=== PATIENT | male | born 1935 | race Caucasian/White ===

== ENCOUNTER 2021-03-27 11:53 | Inpatient (IN) | payer OTHER ==
--- OUTSIDE RECORDS SUMMARY | 2021-03-27 11:57 | XMS REPORT | Continuity of Care Document ---
:1935 Author Organization [facility] Address [address] Nevarez [address] [place] [id number] Care Team Providers Name Role Phone Bharathi COBURN Attending Clinician Unavailable Payers Payer Name Policy Type Policy Number Effective Date Expiration Date S gianni MEDICARE PART A [id number] 2000 \T\ B 00:00:00 [employer] INDEMNITY [id number] [id number] 00:00:00 Problems This patient has no known problems. Allergies, Adverse Reactions, Alerts Allergy Allergy Status Severity Reaction(s) Onset Inactive Treating Comm ents Source Name Type Date Date Clinician NO KNOWN Drug Active [facility] ALLERGIE Class [facility] Medications This patient has no known medications. Procedures This patient has no known procedures. Encounters Start End Encounter Admission Attending Care Care Encounter Source Date/Time Date/Time Type Type Clinicians Facility Department ID 2020-04-20 2020-04-20 Outpatient Angelita COBURN [facility] [id number] Univers 10:30:00 10:30:00 DEJA [id number] [facility] 2020-04-20 2020-04-20 Outpatient Angelita COBURN [facility] [id number] Univers 10:30:00 10:30:00 DEJA [facility] 2020 2020 Outpatient Angelita COBURN [facility] [id number] Univers 10:30:00 10:30:00 DEJA [id number] [facility] 2020 2020 Outpatient Angelita COBURN [facility] [id number] Univers 10:30:00 10:30:00 DEJA [facility] Results This patient has no known results.
[2021-03-27] MEDS ORDERED: LEVALBUTEROL 1.25 MG/3 ML NEB ONE (12:15)
[2021-03-27 12:26] LABS: Absolute Lymphocytes (CBC) 1.7 K/uL (0.7-4.9); Hematocrit 44.7 % (39.6-49.0); Lymphocytes % 19.5 % (15.3-44.8); MPV 8.2 fL (7.6-11.3); RBC Red Blood Cell Count 4.79 M/uL (4.33-5.43)
[2021-03-27 12:33] LABS: Protime INR 1.13
[2021-03-27 12:46] LABS: Albumin 3.2 g/dL (3.4-5.0); Bilirubin Direct 0.1 mg/dL (0-0.2); Bilirubin Total 0.4 mg/dL (0.2-1.0); Magnesium 2.4 mg/dL (1.8-2.4); Potassium 4.3 mmol/L (3.5-5.1)
[2021-03-27 12:51] LABS: Troponin High Sensitivity 83.1 pg/mL (<58.9)
--- NOTE | 2021-03-27 12:59 | RAD REPORT ---
EXAM DESCRIPTION: RAD - Chest Single View - 03/27/2021 12:49 pm CLINICAL HISTORY: SOB COMPARISON: March 26 TECHNIQUE: AP portable chest image was obtained 03/27/2021 12:49 pm . FINDINGS: Lung volumes are low. Interstitial opacification remains. There is central vascular engorg ement and right greater than left pleural effusions. Lung parenchymal pattern is similar to compariso n. No pneumothorax. No acute bony abnormality seen. No acute aortic findings suspected. IMPRESSION: Pulmonary edema pattern with bilateral pleural effusions similar to prior day imaging.
[2021-03-27] MEDS ORDERED: FUROSEMIDE 20 MG/ 2ML VIAL ONE (13:37)
[2021-03-27] MEDS ORDERED: ASPIRIN 81 MG CHEWABLE TABLET ONE (13:37)
[2021-03-27 13:39] LABS: SARS-COV-2 RT PCR NEGATIVE (NEGATIVE)
--- NOTE | 2021-03-27 13:54 | ER ---
Nurse's Notes [facility] Name: Salomón Diane Age: 85 yrs Sex: Male : 1935 Arrival Date: 03/27/2021 Time: 11:58 Bed 19 Private MD: Diagnosis: Unspecified combined systolic (congestive) and diastolic (congestive) heart failure;Dyspnea Presentation: 03/27 12:02 Chief complaint: EMS states: "Pt has a history of CHF and has been getting short of jd3 breath over the past 3 days. we started a 20 G IV to the left AC and gave 40 mg of Lasix.". Coronavirus screen: At this time, the client does not indicate any symptoms associated with coronavirus-19. Ebola Screen: No symptoms or risks identified at this time. Initial Sepsis Screen: Does the patient meet any 2 criteria? No. Patient's initial sepsis screen is negative. Does the patient have a suspected source of infection? No. Patient's initial sepsis screen is negative. Risk Assessment: Do you want to hurt yourself or someone else? Patient reports no desire to harm self or others. Onset of symptoms was March 27, 2021. 12:02 Method Of Arrival: EMS: [facility] jd3 12:02 Acuity: VINOD 3 jd3 Historical: - Allergies: 12:05 No Known Allergies; jd3 - PMHx: 12:05 CHF; jd3 - Immunization history:: Adult Immunizations up to date, Client reports receiving the 2nd dose of the Covid vaccine. - Social history:: Smoking status: Patient denies any tobacco usage or history of. Screenin:08 Abuse screen: Denies threats or abuse. Nutritional screening: No deficits noted. jd3 Tuberculosis screening: No symptoms or risk factors identified. Fall Risk Ambulatory Aid- None/Bed Rest/Nurse Assist (0 pts). Gait- Normal/Bed Rest/Wheelchair (0 pts) Mental Status- Oriented to own ability (0 pts). Total Morfin Fall Scale indicates No Risk (0-24 pts). Assessment: 12:07 General: Appears uncomfortable, Behavior is calm, cooperative, appropriate for age. jd3 Pain: Complains of pain in back and chest Quality of pain is described as aching. Neuro: Level of Consciousness is awake, alert, obeys commands, Oriented to person, place, time, situation. Cardiovascular: Capillary refill < 3 seconds Patient's skin is warm and dry. Rhythm is sinus tachycardia. Respiratory: Reports shortness of breath at rest Airway is patent Respiratory effort is even, unlabored, Respiratory pattern is regular, symmetrical, Denies cough. GI: No signs and/or symptoms were reported involving the gastrointestinal system. : No signs and/or symptoms were reported regarding the genitourinary system. EENT: No signs and/or symptoms were reported regarding the EENT system. Derm: No signs and/or symptoms reported regarding the dermatologic system. Musculoskeletal: Circulation, motion, and sensation intact. Range of motion: intact in all extremities. 13:46 Reassessment: Patient appears in no apparent distress at this time. No changes from jd3 previously documented assessment. Patient and/or family updated on plan of care and expected duration. Pain level reassessed. Patient is alert, oriented x 3, equal unlabored respirations, skin warm/dry/pink. 14:37 Reassessment: Patient appears in no apparent distress at this time. No changes from jd3 previously documented assessment. Patient and/or family updated on plan of care and expected duration. Pain level reassessed. Patient is alert, oriented x 3, equal unlabored respirations, skin warm/dry/pink. Vital Signs: 12:05 BP 137 / 91; Pulse 106; Resp 18 S; Temp 98.4(O); Pulse Ox 97% on R/A; Weight 94.35 kg jd3 (R); Height 5 ft. 9 in. (175.26 cm) (R); Pain 10/10; 13:47 Pulse 110; Resp 20 S; Pulse Ox 96% on R/A; jd3 14:37 BP 102 / 70; Pulse 94; Resp 22 S; Pulse Ox 97% on R/A; jd3 12:05 Body Mass Index 30.72 (94.35 kg, 175.26 cm) jd3 ED Course: 11:58 Patient arrived in ED. iw 12:02 Lobo Hatfield, PUSHPA is Primary Nurse. jd3 12:04 Triage completed. jd3 12:05 Brian Diaz PA is PHCP. cp 12:05 Tio Ocampo MD is Attending Physician. cp 12:06 Arm band placed on. jd3 12:08 Patient has correct armband on for positive identification. Bed in low position. Call jd3 light in reach. Side rails up X 1. Adult w/ patient. threat monitoring analyst on. Pulse ox on. NIBP on. 12:29 Maintain EMS IV. Dressing intact. Good blood return noted. Site clean \\T\\ dry. Gauge \\T\\ bobbi 3 site: 20 G left AC. 12:49 XRAY Chest (1 view) In Process Unspecified. EDMS 13:52 Verónica Medley MD is Hospitalizing Provider. cp 14:12 US Extremity Venous W Compression Pieter In Process Unspecified. EDMS 14:38 Diet: Patient given a heart healthy meal tray. [facility] 15:00 No provider procedures requiring assistance completed. Patient admitted, IV remains in jd3 place. Administered Medications: 12:15 Drug: Xopenex (levalbuterol) (3) 1.25 mg Route: Inhalation; jd3 13:42 Drug: Lasix (furosemide) 20 mg Route: IVP; Site: left antecubital; jd3 14:40 Follow up: Response: No adverse reaction jd3 13:42 Drug: Aspirin Chewable Tablet 324 mg Route: PO; jd3 14:40 Follow up: Response: No adverse reaction jd3 Outcome: 13:53 Decision to Hospitalize by Provider. cp 15:00 Admitted to Med/surg accompanied by tech, via wheelchair, room 225, with chart, Report jd3 called to 2 nd floor nurse 15:00 Condition: stable 15:00 Instructed on the need for admit, Demonstrated understanding of instructions. 15:08 Patient left the ED. jd3 Signatures: Dispatcher [employer] Anali Hudson RN RN Brian Bo PA PA cp Martinez, Maria [facility] Lobo Hatfield RN RN jd3 Corrections: (The following items were deleted from the chart) 13:43 13:42 Lasix (furosemide) 20 mg IVP in right antecubital jd3 jd3
--- NOTE | 2021-03-27 13:54 | EDPHYS ---
Physician Documentation [facility] Name: Salomón Diane Age: 85 yrs Sex: Male : 1935 Arrival Date: 03/27/2021 Time: 11:58 Bed 19 Private MD: ED Physician Tio Ocampo HPI: 03/27 12:20 This 85 yrs old Male presents to ER via EMS with complaints of Shortness of Breath. cp 12:20 The patient has shortness of breath at rest. cp 12:20 Onset: The symptoms/episode began/occurred 3 day(s) ago. cp 12:20 Duration: The symptoms are continuous, and are steadily getting worse. cp 12:20 Associated signs and symptoms: Pertinent negatives: chest pain, diaphoresis, fever, cp vomiting. Historical: - Allergies: 12:05 No Known Allergies; jd3 - PMHx: 12:05 CHF; jd3 - Immunization history:: Adult Immunizations up to date, Client reports receiving the 2nd dose of the Covid vaccine. - Social history:: Smoking status: Patient denies any tobacco usage or history of. ROS: 12:25 Constitutional: Negative for body aches, chills, fever, poor PO intake. cp 12:25 Eyes: Negative for injury, pain, redness, and discharge. cp 12:25 Cardiovascular: Positive for edema, orthopnea, Negative for chest pain, palpitations. cp 12:25 Respiratory: Positive for shortness of breath, at rest. Negative for cough. cp 12:25 Abdomen/GI: Negative for abdominal pain, nausea, vomiting, and diarrhea. 12:25 Neuro: Negative for altered mental status, dizziness, headache, loss of consciousness, syncope, weakness. 12:25 All other systems are negative. Exam: 12:30 Constitutional: The patient appears in no acute distress, alert, awake, cp non-diaphoretic, non-toxic, well developed, well nourished, obese. 12:30 Head/Face: Normocephalic, atraumatic. cp 12:30 Eyes: Periorbital structures: appear normal, Conjunctiva: normal, no exudate, no injection, Sclera: no appreciated abnormality, Lids and lashes: appear normal, bilaterally. 12:30 ENT: External ear(s): are unremarkable, Nose: is normal, Mouth: Lips: moist, Oral mucosa: moist, Posterior pharynx: Airway: no evidence of obstruction, patent. 12:30 Chest/axilla: Inspection: normal, Palpation: is normal, no crepitus, no tenderness. 12:30 Cardiovascular: Rate: tachycardic, Rhythm: regular, Edema: ankle edema, that is moderate, JVD: is not appreciated. 12:30 Respiratory: the patient does not display signs of respiratory distress, Respirations: shallow respirations, that is mild, Breath sounds: decreased breath sounds, that are mild, throughout, stridor, is not appreciated. 12:30 Abdomen/GI: Inspection: obese Palpation: abdomen is soft and non-tender, in all quadrants. 12:30 Back: pain, is absent, ROM is normal. 12:30 Neuro: Orientation: to person, place \\T\\ time. Mentation: is normal, Motor: moves all fours, strength is normal, Sensation: is normal. 12:35 ECG was reviewed by the Attending Physician. Vital Signs: 12:05 BP 137 / 91; Pulse 106; Resp 18 S; Temp 98.4(O); Pulse Ox 97% on R/A; Weight 94.35 kg jd3 (R); Height 5 ft. 9 in. (175.26 cm) (R); Pain 10/10; 13:47 Pulse 110; Resp 20 S; Pulse Ox 96% on R/A; jd3 14:37 BP 102 / 70; Pulse 94; Resp 22 S; Pulse Ox 97% on R/A; jd3 12:05 Body Mass Index 30.72 (94.35 kg, 175.26 cm) jd3 MDM: 12:11 Patient medically screened. 13:50 Data reviewed: vital signs, nurses notes, lab test result(s), EKG, radiologic studies, cp plain films. 13:50 Test interpretation: by ED physician or midlevel provider: ECG, plain radiologic cp studies. 03/27 12:11 Order name: Basic Metabolic Panel; Complete Time: 13:07 03/27 13:08 Interpretation: Normal except: GLUC 123; BUN 21; CRE 1.58; GFR 42. cp 03/27 12:11 Order name: CBC with Diff; Complete Time: 13:07 03/27 12:11 Order name: LFT's; Complete Time: 13: 03/27 12:11 Order name: Magnesium; Complete Time: 13:07 cp 03/27 12:11 Order name: NT PRO-BNP; Complete Time: 13:07 cp 03/27 13:08 Interpretation: Abnormal: NT PRO-BNP 4289. cp 03/27 12:11 Order name: PT-INR; Complete Time: 13:07 cp 03/27 12:11 Order name: Troponin HS; Complete Time: 13:07 cp 03/27 13:08 Interpretation: Abnormal: Troponin HS 83.10. cp 03/27 12:33 Order name: COVID-19/FLU A+B (Document "Date of Onset" if Symptomatic) jd3 03/27 14:16 Order name: CBC with Automated Diff [facility] 03/27 14:16 Order name: CBC with Automated Diff [facility] 03/27 14:16 Order name: Comprehensive Metabolic Panel [facility] 03/27 14:16 Order name: Comprehensive Metabolic Panel [facility] 03/27 14:16 Order name: Magnesium [facility] 03/27 14:16 Order name: Magnesium [facility] 03/27 12:11 Order name: XRAY Chest (1 view); Complete Time: 13:07 03/27 12:11 Order name: EKG; Complete Time: 12:12 cp 03/27 12:11 Order name: Cardiac monitoring; Complete Time: 12:11 cp 03/27 12:11 Order name: EKG - Nurse/Tech; Complete Time: 12:28 03/27 13:22 Order name: US Extremity Venous W Compression Pieter 03/27 14:16 Order name: CONS Physician Consult [facility] 03/27 14:16 Order name: Heart Healthy [facility] 03/27 14:16 Order name: Echo with Doppler [facility] 03/27 14:16 Order name: Echo with Doppler [facility] 03/27 14:16 Order name: NT PRO-BNP [facility] 03/27 14:16 Order name: NT PRO-BNP [facility] 03/27 14:16 Order name: Phosphorus [facility] 03/27 14:16 Order name: Phosphorus [facility] 03/27 12:11 Order name: IV Saline Lock; Complete Time: 12:28 cp 03/27 12:11 Order name: Labs collected and sent; Complete Time: 12:28 03/27 12:11 Order name: O2 Per Protocol; Complete Time: 12:11 cp 03/27 12:11 Order name: O2 Sat Monitoring; Complete Time: 12:11 cp EC:35 Rate is 91 beats/min. Rhythm is regular. MI interval is prolonged at 222 msec. QRS cp interval is prolonged at 106 msec. QT interval is normal. T waves are Inverted in lead aVL. Interpreted by me. Reviewed by me. Administered Medications: 12:15 Drug: Xopenex (levalbuterol) (3) 1.25 mg Route: Inhalation; jd3 13:42 Drug: Lasix (furosemide) 20 mg Route: IVP; Site: left antecubital; jd3 14:40 Follow up: Response: No adverse reaction jd3 13:42 Drug: Aspirin Chewable Tablet 324 mg Route: PO; jd3 14:40 Follow up: Response: No adverse reaction jd3 Disposition: 03/28 04:38 Co-signature as Attending Physician, Tio Ocampo MD I agree with the assessment and sp3 plan of care. Disposition Summary: 03/27/21 13:53 Hospitalization Ordered Hospitalization Status: Inpatient Admission cp Provider: Verónica Medley [facility] cp Condition: Stable cp Problem: new cp Symptoms: have improved cp Bed/Room Type: Standard cp Room Assignment: 225(03/27/21 14:20) bd Diagnosis - Unspecified combined systolic (congestive) and diastolic (congestive) heart failure cp - Dyspnea cp Forms: - Medication Reconciliation Form cp - SBAR form cp Signatures: Dispatcher [employer] EDHeydi Berrios Corey, PA PA cp Lobo Hatfield RN RN jd3 Patel, Setul, MD MD sp3 Corrections: (The following items were deleted from the chart) 03/27 14:20 13:53 cp bd
[2021-03-27] MEDS ORDERED: ONDANSETRON 4 MG/2 ML VIAL IV PRN (14:09)
[2021-03-27] MEDS ORDERED: ACETAMINOPHEN 500 MG TAB PO PRN (14:09)
--- NOTE | 2021-03-27 14:35 | RAD REPORT ---
EXAM DESCRIPTION: US - Extrem Venous W Compress Pieter - 03/27/2021 2:09 pm CLINICAL HISTORY: SWELLING Bilateral leg edema and swelling. COMPARISON: No comparisons TECHNIQUE: Real-time sonographic interrogation of the left and right lower extremity deep venous sys tems was performed. FINDINGS: Normal compressibility, flow augmentation, phasic flow and spontaneous flow is identified in both the left and right lower extremity deep venous systems. IMPRESSION: No sonographic evidence of left or right lower extremity deep venous thrombosis.
[2021-03-27] MEDS ORDERED: WARFARIN SODIUM 5 MG TAB PO SCH (17:00)
[2021-03-27] MEDS ORDERED: FUROSEMIDE 40 MG/4 ML VIAL IV SCH ×2 (17:00→20:00)
[2021-03-27] MEDS: carvediloL 6.25 MG TAB PO SCH (17:21)
--- NOTE | 2021-03-27 20:00 | P.HP ---
Certification for Inpatient Patient admitted to: Inpatient With expected LOS: >2 Midnights Patient will require the following post-hospital care: None Practitioner: I am a practitioner with admitting privileges, knowledge of patient current condition, hospital course, and medical plan of care. Services: Services provided to patient in accordance with Admission requirements found in Title 42 Section 412.3 of the Code of Federal Regulations Patient History Date of Service: 03/27/21 Reason for admission: Dyspnea History of Present Illness: Patient is an 85yo who presents to the hospital with acute CHF. Patient states that he has been having symptoms for the last 7 to 14 days. Patient went to see his PCP and patient was given oral diuretics. Patient was not able to get these filled and his clinical symptoms continue to worsen so he notified his PCP who recommended direct admission. Patient ended up going to the emergency room and patient has been diuresed. Patient's chest x-ray reveals pulmonary edema. Echocardiogram will be pending. Patient has bilateral lower extremity edema as well. Patient will be admitted to the hospital for further treatment. At this time, he appears to have acute CHF. Cardiology consultation as well. Allergies No Known Allergies Allergy (Unverified 04/02/11 19:25) Home Medications: Clopidogrel Bisulfate [Plavix] 75 mg PO DAILY 03/27/21 Empagliflozin [Jardiance] 25 mg PO DAILY 03/27/21 Furosemide 40 mg PO BID 03/27/21 Glimepiride 4 mg PO DAILY 03/27/21 Lisinopril [Zestril] 40 mg PO DAILY 03/27/21 Magnesium Oxide [Mag 0X Tab] 400 mg PO BID 03/27/21 Potassium Chloride 20 meq PO BIDWM 03/27/21 - Past Medical/Surgical History Has patient received pneumonia vaccine in the past: No Diabetic: Yes -: Type 2 diabetes -: Hypertension Past Surgical History: Patient denies surgical history - Family History Father Family History: Reviewed- Non-Contributory - Social History Smoking Status: Former smoker Alcohol use: No CD- Drugs: No Place of Residence: Home Review of Systems 10-point ROS is otherwise unremarkable Physical Examination - Vital Signs Temperature: 97.1 F Blood Pressure: 123/61 Pulse: 86 Respirations: 20 Pulse Ox (%): 98 - Physical Exam General: Alert, In no apparent distress HEENT: Atraumatic, PERRLA, Mucous membr. moist/pink, EOMI, Sclerae nonicteric Neck: Supple, 2+ carotid pulse no bruit, No LAD, Without JVD or thyroid abnormality Respiratory: Crackles/rales Cardiovascular: Regular rate/rhythm, Normal S1 S2, Systolic murmur Gastrointestinal: Normal bowel sounds, No tenderness Musculoskeletal: No tenderness Integumentary: No rashes, Tenderness/swelling Neurological: Normal gait, Normal speech, Normal strength at 5/5 x4 extr, Normal tone, Normal affect Lymphatics: No axilla or inguinal lymphadenopathy - Studies Laboratory Data (last 24 hrs) 03/27/21 12:18: PT 13.0 H, INR 1.13 03/27/21 12:18: WBC 8.90 D, Hgb 14.8, Hct 44.7, Plt Count 324 03/27/21 12:18: Sodium 139, Potassium 4.3, BUN 21 H, Creatinine 1.58 H, Glucose 123 H, Magnesium 2.4, Total Bilirubin 0.4, AST 21, ALT 25, Alkaline Phosphatase 102 Assessment & Plan - Problems (Diagnosis) (1) Acute CHF (congestive heart failure) Current Visit: Yes Status: Acute (2) Acute kidney injury superimposed on CKD Current Visit: Yes Status: Chronic (3) Elevated troponin Current Visit: Yes Status: Acute (4) Bilateral pleural effusion Current Visit: Yes Status: Acute - Plan PLAN: 1. Echocardiogram 2. Continue with cardiac meds 3. Continue Beta simran therapy 4. Cardiology consultation pending 5. Aggressive diuresis 6. Strict I's and O's 7. Repeat CXR 8. Daily weights 9. Education regarding diet and treatment of congestive heart failure Discharge Plan: Home Plan to discharge in: Greater than 2 days - Advance Directives Does patient have a Living Will: Yes Does patient have a Durable POA for Healthcare: Yes - Code Status/Comfort Care Code Status Assessed: Yes Code Status: Full Code Critical Care: No Time Spent Managing PTS Care (In Minutes): 45
[2021-03-27] MEDS ORDERED: POTASSIUM 25 MEQ EFFERV TAB PO SCH (21:00)
[2021-03-27] MEDS: MAGNESIUM OXIDE 400 MG TAB PO SCH (22:40)
[2021-03-27] MEDS: FUROSEMIDE 40 MG/4 ML VIAL IV SCH (22:40)
[2021-03-28] MEDS: FUROSEMIDE 40 MG/4 ML VIAL IV SCH (00:10)
[2021-03-28] MEDS: MELATONIN 5 MG TABLET PO PRN ×2 (00:30→20:59)
[2021-03-28 06:28] LABS: Absolute Lymphocytes (CBC) 2.3 K/uL (0.7-4.9); Hematocrit 42.8 % (39.6-49.0); Lymphocytes % 27.6 % (15.3-44.8); MPV 8.4 fL (7.6-11.3); RBC Red Blood Cell Count 4.58 M/uL (4.33-5.43)
[2021-03-28 07:01] LABS: Bilirubin Total 0.4 mg/dL (0.2-1.0); Magnesium 2.4 mg/dL (1.8-2.4); Phosphorus 3.7 mg/dL (2.5-4.9); Potassium 4.3 mmol/L (3.5-5.1); Protein, Total 7.5 g/dL (6.4-8.2)
[2021-03-28] MEDS: MAGNESIUM OXIDE 400 MG TAB PO SCH ×2 (09:00→20:51)
[2021-03-28] MEDS ORDERED: lisinopriL 20 MG TAB PO SCH ×2 (09:00)
[2021-03-28] MEDS ORDERED: FUROSEMIDE 40 MG/4 ML VIAL IV SCH ×2 (09:00→22:00)
[2021-03-28] MEDS ORDERED: ASPIRIN 325 MG PO SCH (09:00)
[2021-03-28] MEDS ORDERED: ASPIRIN EC 81 MG TAB PO SCH (09:00)
[2021-03-28] MEDS: carvediloL 6.25 MG TAB PO SCH ×2 (09:03→17:00)
[2021-03-28] MEDS: ENOXAPARIN 40 MG/0.4 ML SQ SCH ×2 (09:03→09:04)
[2021-03-28] MEDS: POTASSIUM CL SA 10 MEQ TAB PO SCH ×2 (09:03→17:50)
[2021-03-28] MEDS: GLIMEPIRIDE 2 MG TABLET PO SCH (09:03)
[2021-03-28] MEDS: FUROSEMIDE 20 MG/ 2ML VIAL IV SCH ×3 (09:04→20:55)
[2021-03-28] MEDS: ASPIRIN EC 325 MG TABLET PO SCH (09:04)
[2021-03-28] MEDS: CLOPIDOGREL 75 MG TABLET PO SCH (09:04)
[2021-03-28] MEDS: JARDIANCE 25 MG PO SCH (10:07)
--- NOTE | 2021-03-28 13:05 | EKG ---
Test Date: 2021-03-27 Test Time: 12:27:32 Liquor Department Manager: BUMLARO MEASUREMENT RESULTS: Intervals: Rate: 91 NC: 222 QRSD: 106 QT: 382 QTc: 469 [place]: P: 45 NC: 222 QRS: -51 T: 88 INTERPRETIVE STATEMENTS: Sinus rhythm with 1st degree AV block Left axis deviation ST & T wave abnormality, consider lateral ischemia Prolonged QT Abnormal ECG Compared to ECG 04/01/2011 12:24:24 First degree AV block now present ST (T wave) deviation now present Possible ischemia now present Prolonged QT interval now present Myocardial infarct finding no longer present Electronically Signed On 03-28-21 13:02:58 BEDSPREAD INSPECTOR by Delfino Oliva
--- NOTE | 2021-03-28 14:16 | ECHO ---
HEIGHT: 5 ft 9 in WEIGHT: 210 lb 0 oz DATE OF STUDY: 03/28/[address]: Verónica Medley MD 2-DIMENSIONAL: YES M.MODE: YES DOPPLER: YES COLOR FLOW: YES TDS: YES PORTABLE: DEFINITY: BUBBLE STUDY: DIAGNOSIS: CONGESTIVE HEART FAILURE CARDIAC HISTORY: CATHERIZATION: SURGERY: PROSTHETIC VALVE: PACEMAKER: MEASUREMENTS (cm) DIASTOLIC (NORMALS) SYSTOLIC (NORMALS) IVSd 1.1 (0.6-1.2) LA Diam 4.5 (1.9-4.0) LVEF 67% LVIDd 5.4 (3.5-5.7) LVIDs 3.4 (2.0-3.5) %FS 38% LVPWd 1.2 (0.6-1.2) Ao Diam 3.5 (2.0-3.7) 2 DIMENSIONAL ASSESSMENT: RIGHT ATRIUM: NORMAL LEFT ATRIUM: DILATED RIGHT VENTRICLE: NORMAL LEFT VENTRICLE: NORMAL TRICUSPID VALVE: NORMAL MITRAL VALVE: MITRAL ANNULAR CALCIFICATION PULMONIC VALVE: NORMAL AORTIC VALVE: STENOTIC PERICARDIAL EFFUSION: NONE AORTIC ROOT: NORMAL LEFT VENTRICULAR WALL MOTION: NORMAL EJECTION FRACTION. DECREASED LEFT VENTRICULAR COMPLIANCE. DOPPLER/COLOR FLOW: MODERATE AORTIC STENOSIS. AREA 1.3 CENTIMETERES SQUARED. COMMENTS: DECREASED LEFT VENTRICULAR COMPLIANCE CONSISTENT WITH DIASTOLIC DYSFUNCTION. AORTIC STENOSIS - MODERATE 1.3 CENTIMETERS SQUARED. NORMAL EJECTION FRACTION. MITRAL ANNULAR CALCIFICATION. NO EFFUSION. TECHNOLOGIST: KOSTAS CRUZ
--- NOTE | 2021-03-28 14:47 | RAD REPORT ---
EXAM DESCRIPTION: US - Renal Ultrasound-Complete - 03/28/2021 2:31 pm CLINICAL HISTORY: renal failure Flank pain COMPARISON: No comparisons FINDINGS: Both kidneys are normal in size, shape and echotexture. The right kidney measures 10.9 x 6.7 x 4.8 cm. No hydronephrosis, focal mass or perinephric fluid. The left kidney measures 10.3 x 5.8 x 5.7 cm. No hydronephrosis, focal mass or perinephric fluid. The urinary bladder is suboptimally seen due to patient position. IMPRESSION: Unremarkable renal sonogram.
--- NOTE | 2021-03-28 17:32 | P.PN ---
Subjective Date of Service: 03/28/21 Chief Complaint: Dyspnea Subjective: Improving HE FEELS A LOT BETTER TODAY. HE DENIES CHEST PAIN. Review of Systems 10-point ROS is otherwise unremarkable General: Weakness, Malaise Respiratory: Shortness of Breath Cardiovascular: Orthopnea Physical Examination - Vital Signs Temperature: 97.3 F Blood Pressure: 99/54 Pulse: 69 Respirations: 20 Pulse Ox (%): 99 - Physical Exam General: Oriented x3, Mild distress, Obese HEENT: Atraumatic, PERRLA, EOMI Neck: Supple, JVD not distended Respiratory: Clear to auscultation bilaterally, Normal air movement Cardiovascular: Regular rate/rhythm, Normal S1 S2 Gastrointestinal: Normal bowel sounds, No tenderness Musculoskeletal: No tenderness Integumentary: No rashes Neurological: Normal speech, Normal tone, Normal affect Lymphatics: No axilla or inguinal lymphadenopathy - Studies Medications List Reviewed: Yes Assessment And Plan - Current Problems (Diagnosis) (1) Diastolic CHF, acute Current Visit: Yes Status: Acute Plan: THIS IS NEW HE IS GIVEN TID LASIX YESTERDAY BP IS LOWER TODAY. I REDUCED MEDS. DAILY LAB. SOME PRERENAL AZOTEMIA. (2) Acute kidney injury superimposed on CKD Current Visit: Yes Status: Chronic Plan: FOR FU CKD. DAILY.LAB.
[2021-03-29 05:41] LABS: Absolute Lymphocytes (CBC) 2.1 K/uL (0.7-4.9); Hematocrit 42.5 % (39.6-49.0); Lymphocytes % 25.7 % (15.3-44.8); MPV 8.4 fL (7.6-11.3); RBC Red Blood Cell Count 4.55 M/uL (4.33-5.43)
[2021-03-29 05:54] LABS: Potassium 4.6 mmol/L (3.5-5.1)
[2021-03-29] MEDS: MAGNESIUM OXIDE 400 MG TAB PO SCH ×2 (09:00→21:00)
[2021-03-29] MEDS: carvediloL 6.25 MG TAB PO SCH (09:45)
[2021-03-29] MEDS: ASPIRIN EC 325 MG TABLET PO SCH (09:45)
[2021-03-29] MEDS: GLIMEPIRIDE 2 MG TABLET PO SCH (09:45)
[2021-03-29] MEDS: CLOPIDOGREL 75 MG TABLET PO SCH (09:46)
[2021-03-29] MEDS: JARDIANCE 25 MG PO SCH (09:51)
[2021-03-29] MEDS: ENOXAPARIN 30 MG/0.3 ML SQ SCH (09:52)
--- NOTE | 2021-03-29 13:11 | P.PN ---
Subjective Date of Service: 03/29/21 Chief Complaint: Dyspnea Subjective: Improving HE FEELS A LOT BETTER TODAY. HE DENIES CHEST PAIN. HE FEELS BETTER BUT CREATNINE HAS GONE HIGHER WITH DIURETICS. I CALLED IN DONATION WORKER. Physical Examination - Vital Signs Temperature: 97.5 F Blood Pressure: 116/62 Pulse: 69 Respirations: 16 Pulse Ox (%): 100 - Physical Exam General: Oriented x3, Mild distress, Obese HEENT: Atraumatic, PERRLA, EOMI Neck: Supple, JVD not distended Respiratory: Clear to auscultation bilaterally, Normal air movement Cardiovascular: Regular rate/rhythm, Normal S1 S2 Gastrointestinal: Normal bowel sounds, No tenderness Musculoskeletal: No tenderness Integumentary: No rashes Neurological: Normal speech, Normal tone, Normal affect Lymphatics: No axilla or inguinal lymphadenopathy - Studies Medications List Reviewed: Yes Assessment And Plan - Current Problems (Diagnosis) (1) Diastolic CHF, acute Current Visit: Yes Status: Acute Plan: THIS IS NEW HE IS GIVEN TID LASIX YESTERDAY BP IS LOWER TODAY. I REDUCED MEDS. DAILY LAB. SOME PRERENAL AZOTEMIA. NO JVD CLINICAL BETTER CREAT HIGHER NEEDS DIURETICS BUT NOT ABLE TO TOLERATE. (2) Acute kidney injury superimposed on CKD Current Visit: Yes Status: Chronic Plan: FOR FU CKD. DAILY.LAB. ABOVE. RENAL CONSULT. (3) Coronary artery disease due to type 2 diabetes mellitus Current Visit: Yes Status: Chronic Plan: HE HAS BEEN TO DR. VALLE BUT NOT LATELY. HE WILL SEE HIM HERE.
[2021-03-29] MEDS ORDERED: FUROSEMIDE 40 MG in NA CHLORIDE 0.9% 50 ML IV SCH (14:00)
--- NOTE | 2021-03-29 14:27 | CON ---
Date of Consultation: 03/29/2021 Reason For Consultation: Elevated BUN and creatinine, fluid management. 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 Reviewing the record for the patient, last lab we have on record back in 2011, normal kidney function. Upon arrival to the hospital, creatinine 1.4 with GFR of 47. The patient came to the hospital for the last 2 weeks started having increased shortness of breath and leg swelling, visited with his PCP, started on diuresis. Overall, the patient did not feel better, visited with PCP, admitted to the hospital. After his symptoms got worse, apparently the patient ended up in the hospital with respiratory distress through the emergency room. Upon arrival to the hospital, found to have elevation in BUN and creatinine. The patient was started on diuresis. Kidney function continued to decline. For that reason, we have been consulted. The patient denied taking any nonsteroidal. No IV contrast. Reviewing the data of his home medications, the patient has been on Lasix and COLUMBA inhibitor and lisinopril. The patient other than the diuresis does not recall any other changes in his medication. During the hospitalization, the patient was maintained on diuresis, had incident of low blood pressure down to the 90 yesterday. Lasix has been discontinued and lisinopril has been discontinued. Past Medical History: Includes; 1. Diabetes complicated with neuropathy. 2. CAD status post PTCA in 2006, complicated with congestive heart failure, diastolic dysfunction. 3. Hypertension. 4. Hyperlipidemia. Past Surgical History: Includes; 1. PTCA. 2. Cataract surgery. Allergies: NO KNOWN DRUGS ALLERGY. Family History: Positive for hypertension and diabetes. Review of Systems: Head and Neck: No red eye. No ear pain. GI: No nausea. No vomiting. : No polyuria. No dysuria. Has nocturia. Dredge Captain: Not applicable. Respiratory: Has shortness of breath. Cardiovascular: Has orthopnea. Has leg swelling. Endocrine: No polydipsia. Skin: No rash. Neuro: Has neuropathy. Musculoskeletal: Generalized fatigue. Physical Examination: General: When I saw the patient; the patient lying in bed, shortness of breath. Vital Signs: Blood pressure 116/62, pulse of 69, afebrile. The patient had urine output of 700. Chest: Crackles bilateral. Heart: S1, S2. Systolic murmur. Abdomen: Soft, nontender. Extremities: +2 edema. Neurological: Alert, oriented x3. No focal. Laboratory Data: Sodium 137, potassium 4.6, bicarb 28, BUN 31, creatinine 1.9, GFR of 33, calcium 9.3. WBC 8.4, H and H 13.9/42.5. Urinalysis; specific gravity of 1.020. PC ratio is neglected. Current Medications: The patient on include carvedilol 6.25, Plavix, Lovenox, Tylenol. Lasix was discontinued. Lisinopril was discontinued. Currently also on magnesium, melatonin, and glimepiride with Zofran. Assessment And Plan: 1. Acute kidney injury secondary to cardiorenal, over volume with respiratory symptoms and marginal low blood pressure. I agree with holding Lasix, holding lisinopril. Obstructive uropathy has been ruled out. I am going to go ahead and decrease carvedilol to 3.25 to utilize blood pressure for more diuresis. We will start the patient on Lasix drip and we will follow up the patient. I am going to go ahead and monitor, doubt to be any light chain disease. No activity in the urine to suspect any autoimmune disease. We will follow up. 2. Hypertension, currently blood pressure on the lower side secondary to cardiac. Decrease carvedilol. Start the patient on Lasix drip. I agree with holding the lisinopril with the presence of acute kidney injury. 3. Over volume with congestive heart failure as above. We will follow up with Cardiology. Continue to try to establish better volume control. 4. Coronary artery disease as by Cardiology. Thank you, Dr. Norton for allowing us to participate in the care of your patient. Time spent examining the patient [id number] , reviewing radiology and laboratory data, placing order discussing the case with the steam fitter supervisor maintenance including nursing discussing the case with the hospitalist 65-minute. FROILAN Voice ID: [id number] Report ID: [id number] AMY
[2021-03-29] MEDS: FUROSEMIDE 100 MG in NA CHLORIDE 0.9% 90 ML IV SCH ×2 (14:37→23:55)
[2021-03-29] MEDS: carvediloL 3.125 MG TAB PO SCH (17:00)
[2021-03-29] MEDS: MELATONIN 5 MG TABLET PO PRN (21:14)
--- NOTE | 2021-03-30 06:06 | P.PN ---
Subjective Date of Service: 03/31/21 Chief Complaint: Dyspnea Subjective: Other (C/o persistent SOB & orthopnea.) Physical Examination - Vital Signs Temperature: 97.0 F Blood Pressure: 100/51 Pulse: 68 Respirations: 16 Pulse Ox (%): 94 - Physical Exam General: Mild distress HEENT: Atraumatic, Normocephalic Neck: Supple, JVD not distended Respiratory: Diminished, Other (chest expansion) Cardiovascular: Other (Trace BLE edema) Gastrointestinal: Soft and benign, No guarding Musculoskeletal: Swelling Integumentary: No warmth Neurological: Normal speech, Normal tone Urinary: Other (no bladder distention) External genitalia: Deferred Rectal: Deferred - Studies Medications List Reviewed: Yes Assessment And Plan - Plan # JAIDA 2/2 ischemic ATN from relative hypotension (? CRS1, carvedilol), + prerenal state from diuretic use, also in the setting of lisinopril use SCr increasing to 2.4 today Baseline serum creatinine unclear at this time Urine chemistry today with a high urine sodium and high urine potassium consistent with diuretic effect No proteinuria CPK wnl, no rhabdo Dc carvedilol Dc lasix Start Midodrine 5 mg po bid liberal by mouth fluid intake Monitor renal panel # Acute respiratory failure w/ bilateral pleural effusion, unclear if primarily cardiogenic vs pulmonary +trop leak, BNP sig elevated TTE on 03/28/2021 showed LVEF 67%, moderate aortic stenosis, diastolic dysfunction, dilated left atrium ABG today +hypoxia O2 suppl prn Loop diuretic discontinued today due to worsening JAIDA Thoracentesis as below ? Chronic lung dse exacerbation. Nebs & steroid short course started. Consult pulmonology # Bilateral pleural effusion ? 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 Plasma cell dyscrasia less likely. + elevated R hemidiaphragm Echo findings not impressive enough to explain respiratory failure & sig bilateral pleural effusion No severe elevation in BP to contribute to pulmo edema Ordered R thoracentesis for diagnostic & therapeutic. Won't be done until Friday. Pleural fluid analysis sent including cytology F/u ISAAC Pulmonary consult as above # CAD Per Cardiology # Metabolic alkalosis ABG today showed metab alkalosis DC Lasix Calvert by mouth fluid intake # Secondary hyperparathyroidism Serum intact PTH elevated 172 Monitor # DM2 Mngt per primary team
[2021-03-30 06:16] LABS: Absolute Lymphocytes (CBC) 2.1 K/uL (0.7-4.9); Hematocrit 44.2 % (39.6-49.0); Lymphocytes % 25.8 % (15.3-44.8); MPV 8.4 fL (7.6-11.3); RBC Red Blood Cell Count 4.73 M/uL (4.33-5.43)
[2021-03-30 06:31] VITALS: BMI 30.2
[2021-03-30 06:41] LABS: Albumin 2.9 g/dL (3.4-5.0); Phosphorus 5.2 mg/dL (2.5-4.9); Potassium 4.5 mmol/L (3.5-5.1); Thyroid Stimulating Hormone 3.02 uIU/mL (0.360-3.740)
[2021-03-30] MEDS: carvediloL 3.125 MG TAB PO SCH ×2 (08:00→17:00)
[2021-03-30] MEDS: MAGNESIUM OXIDE 400 MG TAB PO SCH ×2 (09:00→21:00)
[2021-03-30] MEDS: ASPIRIN EC 325 MG TABLET PO SCH (09:33)
[2021-03-30] MEDS: GLIMEPIRIDE 2 MG TABLET PO SCH (09:33)
[2021-03-30] MEDS: CLOPIDOGREL 75 MG TABLET PO SCH (09:34)
[2021-03-30] MEDS: JARDIANCE 25 MG PO SCH (09:35)
[2021-03-30] MEDS: ENOXAPARIN 30 MG/0.3 ML SQ SCH (09:41)
[2021-03-30] MEDS: FUROSEMIDE 100 MG in NA CHLORIDE 0.9% 90 ML IV SCH (11:44)
--- NOTE | 2021-03-30 14:19 | P.PN ---
Subjective Date of Service: 03/30/21 Chief Complaint: Dyspnea Subjective: Improving HE FEELS A LOT BETTER TODAY. HE DENIES CHEST PAIN. HE FEELS BETTER BUT CREATNINE HAS GONE HIGHER WITH DIURETICS. I CALLED IN FOLDING MACHINE FEEDER. HE FEELS SOME BETTER BUT STILL DYSPNEIC. Review of Systems 10-point ROS is otherwise unremarkable Respiratory: Shortness of Breath, As per HPI Physical Examination - Vital Signs Temperature: 97.2 F Blood Pressure: 113/56 Pulse: 71 Respirations: 18 Pulse Ox (%): 95 - Physical Exam General: Oriented x3, Mild distress, Moderate distress, Obese HEENT: Atraumatic, PERRLA, EOMI Neck: Supple, JVD not distended Respiratory: Clear to auscultation bilaterally, Normal air movement Cardiovascular: Regular rate/rhythm, Normal S1 S2 Gastrointestinal: Normal bowel sounds, No tenderness Musculoskeletal: No tenderness Integumentary: No rashes Neurological: Normal speech, Normal tone, Normal affect Lymphatics: No axilla or inguinal lymphadenopathy - Studies Medications List Reviewed: Yes Assessment And Plan - Current Problems (Diagnosis) (1) Diastolic CHF, acute Current Visit: Yes Status: Acute Plan: THIS IS NEW HE IS GIVEN TID LASIX YESTERDAY BP IS LOWER TODAY. I REDUCED MEDS. DAILY LAB. SOME PRERENAL AZOTEMIA. NO JVD CLINICAL BETTER CREAT HIGHER NEEDS DIURETICS BUT NOT ABLE TO TOLERATE. (2) Acute kidney injury superimposed on CKD Current Visit: Yes Status: Chronic Plan: FOR FU CKD. DAILY.LAB. ABOVE. RENAL CONSULT. CREAT HIGHER DESPITE LASIX DRIP. PROGNOSIS IS GUARDED. (3) Coronary artery disease due to type 2 diabetes mellitus Current Visit: Yes Status: Chronic Plan: HE HAS BEEN TO DR. VALLE BUT NOT LATELY. HE WILL SEE HIM HERE.
--- NOTE | 2021-03-30 15:27 | RAD REPORT ---
EXAM DESCRIPTION: RADChest Pa And Lat (2 Views)03/30/2021 2:57 pm CLINICAL HISTORY: Shortness of breath COMPARISON: March 27, 2021 FINDINGS: Bilateral pulmonary opacities are mostly resolved. Small to moderate right and small left pleural effusions without significant change. Heart remains enlarged
--- NOTE | 2021-03-30 16:38 | RAD REPORT ---
EXAM DESCRIPTION: CT - Thorax Wo Con - 03/30/2021 4:24 pm CLINICAL HISTORY: CHF/pleural effusion COMPARISON: Chest x-ray March 30, 2021 TECHNIQUE: Computed axial tomography of the chest was obtained. Contrast was not requested. All CT scans are performed using dose optimization technique as appropriate and may include automated exposure control or mA/KV adjustment according to patient size. FINDINGS: The evaluation of mediastinum, chica and vessels is limited secondary to lack of IV contras t administration. The right hemidiaphragm is elevated. Small to moderate bilateral pleural effusions right greater than left. Bibasilar atelectasis. Coronary arterial calcifications. No mediastinal or hilar lymphadenopathy. IMPRESSION: Elevation of the right hemidiaphragm. This accounts for most of the haziness involving t he right lower hemithorax seen on recent chest x-rays. Small to moderate bilateral pleural effusions right greater than left. Bibasilar atelectasis
[2021-03-30 18:23] LABS: UR PROTEIN < 5.0 mg/dL (<11.9); Urine Protein/Creatinine Ratio ND ratio (<0.15)
[2021-03-30] MEDS: MELATONIN 5 MG TABLET PO PRN (21:25)
[2021-03-30] MEDS ORDERED: FUROSEMIDE 100 MG in NA CHLORIDE 0.9% 90 ML IV SCH (22:00)
[2021-03-30 22:09] LABS: Arterial Blood Carboxyhemoglob 1.1 % (0-1.5); Blood Gas Oxyhemoglobin 90.1 % (94-97); Blood O2 Saturation 91.9 % (92-98.5)
[2021-03-31] MEDS: METHYLPREDNISOLONE 40 MG INJ IV SCH ×2 (01:14→05:55)
[2021-03-31] MEDS: IPRATROPIUM BROM 0.5MG/2.5ML NEB SCH ×4 (01:40→19:28)
[2021-03-31] MEDS: ALBUTEROL 2.5 MG/3 ML NEB SOL NEB SCH ×4 (01:40→19:28)
[2021-03-31 05:00] LABS: Absolute Lymphocytes (CBC) 1.6 K/uL (0.7-4.9); Hematocrit 45.8 % (39.6-49.0); Lymphocytes % 16.5 % (15.3-44.8); MPV 8.7 fL (7.6-11.3)
[2021-03-31 05:16] LABS: Albumin 2.9 g/dL (3.4-5.0); Magnesium 2.8 mg/dL (1.8-2.4); Phosphorus 4.4 mg/dL (2.5-4.9)
[2021-03-31] MEDS ORDERED: MIDODRINE HCL 5 MG TABLET PO STA (05:17)
[2021-03-31] MEDS: MAGNESIUM OXIDE 400 MG TAB PO SCH ×2 (09:00→20:53)
[2021-03-31] MEDS: ENOXAPARIN 30 MG/0.3 ML SQ SCH (09:52)
[2021-03-31] MEDS: GLIMEPIRIDE 2 MG TABLET PO SCH (09:52)
[2021-03-31] MEDS: ASPIRIN EC 325 MG TABLET PO SCH (09:53)
[2021-03-31] MEDS: JARDIANCE 25 MG PO SCH (09:53)
[2021-03-31] MEDS: CLOPIDOGREL 75 MG TABLET PO SCH (09:54)
--- NOTE | 2021-03-31 10:26 | P.PN ---
Subjective Date of Service: 03/31/21 Chief Complaint: Dyspnea Subjective: Improving HE FEELS A LOT BETTER. I DISCUSSED WITH DR. MONAHAN. Review of Systems 10-point ROS is otherwise unremarkable General: Weakness Physical Examination - Vital Signs Temperature: 97.0 F Blood Pressure: 110/58 Pulse: 71 Respirations: 16 Pulse Ox (%): 98 - Physical Exam General: Mild distress HEENT: Atraumatic, PERRLA, EOMI Neck: Supple, JVD not distended Respiratory: Clear to auscultation bilaterally, Normal air movement Cardiovascular: Regular rate/rhythm, Normal S1 S2 Gastrointestinal: Normal bowel sounds, No tenderness Musculoskeletal: No tenderness Integumentary: No rashes Neurological: Normal speech, Normal tone, Normal affect Lymphatics: No axilla or inguinal lymphadenopathy - Studies Medications List Reviewed: Yes Assessment And Plan - Current Problems (Diagnosis) (1) Diastolic CHF, acute Current Visit: Yes Status: Acute Plan: THIS IS NEW HE IS GIVEN TID LASIX YESTERDAY BP IS LOWER TODAY. I REDUCED MEDS. DAILY LAB. SOME PRERENAL AZOTEMIA. NO JVD CLINICAL BETTER CREAT HIGHER NEEDS DIURETICS BUT NOT ABLE TO TOLERATE. R PLEURAL EFFUSION WILL NEED DIAGNOSTIC AND THERAPEUTIC TAP ON FRIDAY. PATIENT IS AWARE. DIURETICS HAVE NOT REDUCED THIS EFFUSION. DIURETICS DID HELP PULMONARY EDEMA. (2) Acute kidney injury superimposed on CKD Current Visit: Yes Status: Chronic Plan: FOR FU CKD. DAILY.LAB. ABOVE. RENAL CONSULT. CREAT HIGHER DESPITE LASIX DRIP. PROGNOSIS IS GUARDED. ARF ON CKD IF WORSE. I STOPPED LASIX LAST NIGHT BP WAS LOW. RENAL DOCTORS ARE AWARE. (3) Coronary artery disease due to type 2 diabetes mellitus Current Visit: Yes Status: Chronic Plan: HE HAS BEEN TO DR. VALLE BUT NOT LATELY. HE WILL SEE HIM HERE. (4) COPD (chronic obstructive pulmonary disease) Current Visit: Yes Status: Chronic Plan: FORMER SMOKER COPD IS ALWAYS POSSIBLE. IV STEROIDS, NEBS HELPED SOME.
[2021-03-31 10:58] LABS: Potassium 5.1 mmol/L (3.5-5.1)
[2021-03-31] MEDS ORDERED: GLUCAGON 1 MG/VIAL IM PRN (11:29)
[2021-03-31] MEDS ORDERED: D50W 25 GM/50 ML SYRINGE IV PRN (11:29)
[2021-03-31] MEDS: INSULIN -REGULAR HUMAN 50 UNIT/0.5 ML ML SQ SCH ×3 (11:30→20:54)
--- NOTE | 2021-03-31 15:39 | PN ---
Date of Progress Note: 03/31/2021 Subjective: The patient was admitted with acute kidney injury secondary to cardiorenal/COLUMBA inhibitor. The patient was started on Lasix drip. Shortness of breath has been improved significantly. The patient had a drop in his blood pressure yesterday down to the 90. Lasix has been discontinued. The patient today is much better and completing full sentence without any interruption. Still have mild shortness of breath. Physical Examination: Vital Signs: Blood pressure 110/58, pulse of 78, afebrile. The patient had good urine output of 2300. The patient is negative of 1400. As weight benavidez, the patient lost from day before yesterday of 5 pounds. Chest: Decreased entry, right base. Heart: S1, S2. Systolic murmur. Abdomen: Soft and nontender. Extremities: No edema. Neurologic: Alert. No focality. Laboratory Data: WBC 9.6, H and H 14.8/45.8. Sodium 137, potassium 4.5, bicarb 32, BUN 36, creatinine 2.4, GFR of 26, calcium 9.4, phosphorus 5.2. Vitamin D still pending. PTH 172. TSH is 3.2. Urinalysis, P/C ratio is neglected. Current Medications: The patient on include: 1. Aspirin. 2. Midodrine 5 mg b.i.d. 3. Plavix. 4. Lovenox. 5. Glimepiride. 6. Melatonin. Assessment And Plan: 1. Acute kidney injury secondary to cardiorenal, superimposed with COLUMBA inhibitor, currently normal volume. I agree with holding the diuresis and other blood pressure medication and we will monitor. 2. Right pleural effusion. Plan for thoracocentesis. We will follow up with the primary. 3. Congestive heart failure with diastolic dysfunction, currently normal volume. Hold diuresis. 4. Hypertension. Currently blood pressure on the lower side. The patient was started on midodrine. We will follow up. 5. Diabetes, as by Primary. Time spent examining the patient [id number] , reviewing radiology and laboratory data, placing order discussing the case with the steam tender including nursing discussing the case with the hospitalist 35-minute. FROILAN Voice ID: [id number] Report ID: [id number] MTDD
[2021-03-31] MEDS: MELATONIN 5 MG TABLET PO PRN (20:53)
[2021-04-01] MEDS: ALBUTEROL 2.5 MG/3 ML NEB SOL NEB SCH ×4 (02:25→20:00)
[2021-04-01] MEDS: IPRATROPIUM BROM 0.5MG/2.5ML NEB SCH ×4 (02:25→20:00)
[2021-04-01 06:17] LABS: Absolute Lymphocytes (CBC) 2.9 K/uL (0.7-4.9); Hematocrit 45.8 % (39.6-49.0); Lymphocytes % 23.9 % (15.3-44.8); MPV 8.9 fL (7.6-11.3); RBC Red Blood Cell Count 4.95 M/uL (4.33-5.43)
[2021-04-01 06:32] LABS: Potassium 4.3 mmol/L (3.5-5.1)
[2021-04-01] MEDS: INSULIN -REGULAR HUMAN 50 UNIT/0.5 ML ML SQ SCH ×4 (07:30→20:43)
[2021-04-01] MEDS: ENOXAPARIN 30 MG/0.3 ML SQ SCH (08:47)
[2021-04-01] MEDS: JARDIANCE 25 MG PO SCH (08:48)
[2021-04-01] MEDS: GLIMEPIRIDE 2 MG TABLET PO SCH (08:48)
[2021-04-01] MEDS: MAGNESIUM OXIDE 400 MG TAB PO SCH ×2 (09:00→20:44)
--- NOTE | 2021-04-01 11:26 | P.PN ---
Subjective Date of Service: 04/01/21 Chief Complaint: Dyspnea Subjective: Improving HE FEELS A LOT BETTER. I DISCUSSED WITH DR. MONAHAN. HE IS STABLE. LOT BETTER THAN ADMISSION. Review of Systems 10-point ROS is otherwise unremarkable General: Weakness Physical Examination - Vital Signs Temperature: 97.0 F Blood Pressure: 124/61 Pulse: 95 Respirations: 18 Pulse Ox (%): 98 - Physical Exam General: Oriented x3, Mild distress HEENT: Atraumatic, PERRLA, EOMI Neck: Supple, JVD not distended Respiratory: Diminished Cardiovascular: Regular rate/rhythm, Normal S1 S2 Gastrointestinal: Normal bowel sounds, No tenderness Musculoskeletal: No tenderness Integumentary: No rashes Neurological: Normal speech, Normal tone, Normal affect Lymphatics: No axilla or inguinal lymphadenopathy - Studies Medications List Reviewed: Yes Assessment And Plan - Current Problems (Diagnosis) (1) Diastolic CHF, acute Current Visit: Yes Status: Acute Plan: THIS IS NEW HE IS GIVEN TID LASIX YESTERDAY BP IS LOWER TODAY. I REDUCED MEDS. DAILY LAB. SOME PRERENAL AZOTEMIA. NO JVD CLINICAL BETTER CREAT HIGHER NEEDS DIURETICS BUT NOT ABLE TO TOLERATE. R PLEURAL EFFUSION WILL NEED DIAGNOSTIC AND THERAPEUTIC TAP ON FRIDAY. PATIENT IS AWARE. DIURETICS HAVE NOT REDUCED THIS EFFUSION. DIURETICS DID HELP PULMONARY EDEMA. (2) Acute kidney injury superimposed on CKD Current Visit: Yes Status: Chronic Plan: FOR FU CKD. DAILY.LAB. ABOVE. RENAL CONSULT. CREAT HIGHER DESPITE LASIX DRIP. PROGNOSIS IS GUARDED. ARF ON CKD IF WORSE. I STOPPED LASIX LAST NIGHT BP WAS LOW. RENAL DOCTORS ARE AWARE. CREAT CAME DOWN AFTER STOPPING LASIX DRIP (3) Coronary artery disease due to type 2 diabetes mellitus Current Visit: Yes Status: Chronic Plan: HE HAS BEEN TO DR. VALLE BUT NOT LATELY. HE WILL SEE HIM HERE. (4) COPD (chronic obstructive pulmonary disease) Current Visit: Yes Status: Chronic Plan: FORMER SMOKER COPD IS ALWAYS POSSIBLE. IV STEROIDS, NEBS HELPED SOME. (5) Pleural effusion Current Visit: Yes Status: Acute (6) Pleural effusion Current Visit: Yes Status: Acute Plan: LARGE R SIDE TO TAP DIAGNOSTIC AND THERAPEUTIC. IN AM. STABLE.
--- NOTE | 2021-04-01 12:49 | PN ---
Date of Progress Note: 04/01/2021 Subjective: The patient was admitted with acute kidney injury secondary to cardiorenal and poor perfusion, ATN. The patient was diuresed day before yesterday. Had low blood pressure. We hold the diuresis. Respiratory symptoms have been improved, edema resolved. Physical Examination: Vital Signs: Blood pressure 124/60, pulse of 95, afebrile. Chest: Faint thrills bilateral base. Heart: S1, S2. Systolic murmur. Abdomen: Soft, nontender. Extremities: No edema. Neurologic: Alert. No focality. Laboratory Data: WBC 12, H and H 14.8/45.8. Sodium 133, potassium 4.3, bicarb 28, BUN 57, creatinine down to 2.1, GFR of 29, calcium of 9. Current Medications: The patient on include; 1. Aspirin. 2. Midodrine 5 b.i.d. 3. Plavix. 4. Ipratropium. 5. Empagliflozin. Assessment And Plan: 1. Acute kidney injury secondary to poor perfusion, ATN, currently normal volume. I am going to keep holding on the diuresis. We will monitor the patient closely. 2. Hypertension, controlled, optimal. I am going to continue current medications. 3. Anasarca secondary to cardiorenal, resolved. We will keep holding diuresis right now. 4. Congestive heart failure with exacerbation, diastolic dysfunction. Normal volume currently. Keep holding diuresis. 5. Hyponatremia, dilutional, stable. We will monitor. 6. Pleural effusion. Plan for thoracocentesis tomorrow. We will follow up. 7. Shortness of breath, combined secondary to poor perfusion, diastolic congestive heart failure, currently normal volume. We will follow up thoracocentesis tomorrow. Time spent examining the patient [id number] , reviewing radiology and laboratory data, placing order discussing the case with the body service team member including nursing discussing the case with the hospitalist 35-minute. FROILAN Voice ID: [id number] Report ID: [id number] AMY
[2021-04-01] MEDS: MELATONIN 5 MG TABLET PO PRN (21:23)
[2021-04-02] MEDS: ALBUTEROL 2.5 MG/3 ML NEB SOL NEB SCH ×4 (02:00→20:00)
[2021-04-02] MEDS: IPRATROPIUM BROM 0.5MG/2.5ML NEB SCH ×4 (02:10→20:00)
[2021-04-02 06:11] LABS: Absolute Lymphocytes (CBC) 2.4 K/uL (0.7-4.9); Hematocrit 43.3 % (39.6-49.0); Lymphocytes % 27.4 % (15.3-44.8); RBC Red Blood Cell Count 4.65 M/uL (4.33-5.43)
[2021-04-02 06:23] LABS: Potassium 4.6 mmol/L (3.5-5.1)
[2021-04-02] MEDS: INSULIN -REGULAR HUMAN 50 UNIT/0.5 ML ML SQ SCH ×4 (07:30→22:02)
[2021-04-02] MEDS: GLIMEPIRIDE 2 MG TABLET PO SCH ×2 (08:00)
[2021-04-02] MEDS: JARDIANCE 25 MG PO SCH ×2 (09:00→09:31)
[2021-04-02] MEDS: MAGNESIUM OXIDE 400 MG TAB PO SCH ×3 (09:00→22:05)
--- NOTE | 2021-04-02 12:52 | CON ---
Date of Consultation: 03/28/[address] Medley on 03/27/2021. I saw the patient on 03/28/2021. Reason For Consultation: Shortness of breath and congestive heart failure. History Of Present Illness: The patient, Mr. Diane, is 85 years old, has a history of coronary art mirian disease, diabetes, chronic diastolic congestive heart failure, hypertension, and comes in with sh ortness of breath. Echocardiogram that was ordered showed moderate aortic stenosis as well as diasto lic dysfunction with a normal ejection fraction. The patient is presently on inhalers, aspirin, Plav ix, is on glimepiride. His home medications have been continued. He is on insulin, magnesium, and i s already feeling slightly better. When he came in, he did not have any chest pain, with mostly shor tness of breath, PND, pedal edema. No palpitation. No syncope and no fever and no chills. Past Medical History: As stated above. Allergies: NONE. Medications: Listed earlier. Review of Systems: Negative. Social History: Negative. Family History: Noncontributory. Physical Examination: Vital Signs: Stable. He was afebrile. His blood pressure is 110/60. He was in sinus rhythm, afebr ile. HEENT: Negative. Neck: Supple with no bruit. Chest: Revealed some rales, both bases. Cardiac: Exam revealed a regular rhythm and rate with an aortic stenosis, murmur, S4 gallops. No ru bs. Abdomen: Benign. Extremities: Revealed 1+ edema. Diagnostic Data: His creatinine was elevated, greater than 2. His PO2 was 65, pCO2 48, his glucose was 154. Magnesium was normal. Potassium was normal. His chest x-ray shows pulmonary edema. EKG s howed left ventricular hypertrophy, possible lateral ischemia. Venous Doppler was negative. Impression And Plan: Acute on chronic diastolic congestive heart failure with left ventricular compl iance being decreased as well as mild aortic stenosis. I agree with his present regimen with beta bl ockade, low-dose Lasix, and he is not a candidate for COLUMBA inhibitor, and he does not need it with his ejection fraction being normal. We will have to watch his kidney function, I's and O's, and daily w eight. He should continue his other regimen for diabetes as well as the chronic obstructive pulmonar y disease. Nephrology is involved in his care. I spoke with Dr. Norton. I will continue to follow h im on an as-needed basis. No plan for any cardiac workup at this point. The echo has already been d one. The patient's aortic valve is not severe enough for any repair at this point. OMA/YULY Voice ID: [id number] Report ID: [id number]
--- NOTE | 2021-04-02 13:01 | P.PN ---
Subjective Date of Service: 04/02/21 Chief Complaint: Dyspnea Subjective: Improving HE FEELS A LOT BETTER. I DISCUSSED WITH DR. MONAHAN. HE IS STABLE. LOT BETTER THAN ADMISSION. WE WERE TO DO THORACENTASIS BUT HE ATE. POSTPONED TILL AM. Review of Systems 10-point ROS is otherwise unremarkable General: Weakness Physical Examination - Vital Signs Temperature: 97.0 F Blood Pressure: 102/59 Pulse: 94 Respirations: 17 Pulse Ox (%): 99 - Physical Exam General: Mild distress HEENT: Atraumatic, PERRLA, EOMI Neck: Supple, JVD not distended Respiratory: Diminished, Rhonchi/gurgles Cardiovascular: Regular rate/rhythm, Normal S1 S2 Gastrointestinal: Normal bowel sounds, No tenderness Musculoskeletal: No tenderness Integumentary: No rashes Neurological: Normal speech, Normal tone, Normal affect Lymphatics: No axilla or inguinal lymphadenopathy - Studies Medications List Reviewed: Yes Assessment And Plan - Current Problems (Diagnosis) (1) Diastolic CHF, acute Current Visit: Yes Status: Acute Plan: THIS IS NEW HE IS GIVEN TID LASIX YESTERDAY BP IS LOWER TODAY. I REDUCED MEDS. DAILY LAB. SOME PRERENAL AZOTEMIA. NO JVD CLINICAL BETTER CREAT HIGHER NEEDS DIURETICS BUT NOT ABLE TO TOLERATE. R PLEURAL EFFUSION WILL NEED DIAGNOSTIC AND THERAPEUTIC TAP ON FRIDAY. PATIENT IS AWARE. DIURETICS HAVE NOT REDUCED THIS EFFUSION. DIURETICS DID HELP PULMONARY EDEMA. CREAT IS DOWN TO 1.86 NOW OFF DIURETICS. (2) Acute kidney injury superimposed on CKD Current Visit: Yes Status: Chronic Plan: FOR FU CKD. DAILY.LAB. ABOVE. RENAL CONSULT. CREAT HIGHER DESPITE LASIX DRIP. PROGNOSIS IS GUARDED. ARF ON CKD IF WORSE. I STOPPED LASIX LAST NIGHT BP WAS LOW. RENAL DOCTORS ARE AWARE. CREAT CAME DOWN AFTER STOPPING LASIX DRIP ABOVE. (3) Coronary artery disease due to type 2 diabetes mellitus Current Visit: Yes Status: Chronic Plan: HE HAS BEEN TO DR. VALLE BUT NOT LATELY. HE WILL SEE HIM HERE. (4) COPD (chronic obstructive pulmonary disease) Current Visit: Yes Status: Chronic Plan: FORMER SMOKER COPD IS ALWAYS POSSIBLE. IV STEROIDS, NEBS HELPED SOME. (5) Pleural effusion Current Visit: Yes Status: Acute (6) Pleural effusion Current Visit: Yes Status: Acute Plan: LARGE R SIDE TO TAP DIAGNOSTIC AND THERAPEUTIC. IN AM. STABLE. TAP DELAYED. KEEP NPO AFTER MIDNIGHT.
[2021-04-02] MEDS: MELATONIN 5 MG TABLET PO PRN (22:10)
--- NOTE | 2021-04-03 01:58 | PN ---
Date of Progress Note: 04/02/2021 Chief Complaint: Acute kidney injury secondary to cardiorenal syndrome and renal hypoperfusion compl icated by ATN. Patient has nonoliguric urine output. He denies dysuria, hematuria, renal colic. He denies PND or orthopnea. Respiratory symptoms have improved. Leg edema is stabilizing. Review of Systems: Denies fever, chills. Physical Examination: Lungs: Diminished breath sounds at bases. Heart: S1 and S2. Abdomen: Soft, benign. Extremities: No edema. Impression And Plan: 1.Acute on chronic kidney injury. The patient did not require dialysis. Continue diuretic as neede d, currently diuretic is on hold due to acute kidney injury. Volemia has improved and diuretics were stopped at this point. 2.Hypertension, controlled. Continue treatment. 3.Congestive heart failure with exacerbation, acute on chronic with diastolic dysfunction. Continue low-sodium diet and adjust diuretic as needed. 4.Hyponatremia, dilutional secondary to congestive heart failure. Continue p.o. fluid restriction. Monitor electrolytes. EB/MODL Voice ID: [id number] Report ID: [id number]
[2021-04-03] MEDS: IPRATROPIUM BROM 0.5MG/2.5ML NEB SCH ×4 (02:00→20:00)
[2021-04-03] MEDS: ALBUTEROL 2.5 MG/3 ML NEB SOL NEB SCH ×4 (02:00→20:00)
[2021-04-03 05:58] LABS: Absolute Lymphocytes (CBC) 2.5 K/uL (0.7-4.9); Hematocrit 43.6 % (39.6-49.0); Lymphocytes % 30.7 % (15.3-44.8); MPV 8.7 fL (7.6-11.3); RBC Red Blood Cell Count 4.68 M/uL (4.33-5.43)
[2021-04-03 06:20] LABS: Potassium 4.6 mmol/L (3.5-5.1)
[2021-04-03] MEDS: INSULIN -REGULAR HUMAN 50 UNIT/0.5 ML ML SQ SCH ×4 (07:30→22:24)
[2021-04-03] MEDS: GLIMEPIRIDE 2 MG TABLET PO SCH (08:00)
[2021-04-03] MEDS: MAGNESIUM OXIDE 400 MG TAB PO SCH ×2 (09:00→20:14)
[2021-04-03] MEDS: JARDIANCE 25 MG PO SCH (09:00)
[2021-04-03 09:50] LABS: Vitamin D 1,25-Dihydroxy Total 19 pg/mL (18-72); Vitamin D,1,25-OH2, D2 <8 pg/mL
--- NOTE | 2021-04-03 11:15 | RAD REPORT ---
EXAM DESCRIPTION: US - Thoracentesis w/ US Guide - 04/03/2021 10:29 am CLINICAL HISTORY: Pleural effusion. R pleural effusion w/ acute respi failure COMPARISON: No comparisons FINDINGS: Preoperative diagnosis: Right pleural effusion Post operative diagnosis: Same Conscious Sedation: None. Estimated blood loss: Minimal Specimens:A small volume of fluid was sent for requested lab studies. The patient was placed in the upright recumbent position and the right chest was prepped and draped i n the usual sterile fashion. 1% Lidocaine was infiltrated into the soft tissues for local anesthesia . Under sonographic guidance, a thoracentesis needle and 6 Ethiopian catheter was advanced into the rig ht pleural space. Approximately 800 cc yellow fluid was aspirated. Samples were sent to pathology for requested analysis. The patient tolerated the procedure without immediate complication and transferr ed to the floor in stable condition. IMPRESSION: Successful ultrasound-guided thoracentesis as detailed.
--- NOTE | 2021-04-03 13:43 | PN ---
Date of Progress Note: 04/03/2021 Subjective: The patient admitted with CHF exacerbation, acute kidney injury. The patient was diuresed. We held the diuresis because of the low blood pressure. The patient undergone thoracocentesis today, managed to remove 800. Physical Examination: Vital Signs: When I saw the patient; blood pressure 134/70, pulse of 82, afebrile. Chest: Decreased entry on the right base. Heart: S1, S2. Regular. Abdomen: Soft, nontender. Extremities: No edema. Neurologic: Alert. No focality. Laboratory Data: WBC 8.2, H and H 14.3/43.6. Sodium 134, potassium 4.6, bicarb 25, BUN 43, creatinine 1.6, GFR 41, calcium of 9. Current Medications: The patient on include Tylenol, albuterol, Plavix, aspirin, glimepiride, ipratropium, melatonin. Assessment And Plan: 1. Acute kidney injury secondary to cardiorenal, currently normal volume. I would consider placing back the patient on Lasix 20 mg and we will monitor. 2. Hypertension, controlled, currently on the lower side. We will keep holding blood pressure medication. 3. Congestive heart failure with exacerbation. We will resume diuresis. 4. Hyponatremia, dilutional, resolved. 5. Diabetes as by primary. 6. Pleural effusion, status post thoracocentesis. We will follow up with primary. Time spent examining the patient [id number] , reviewing radiology and laboratory data, placing order discussing the case with the receiving team member including nursing discussing the case with the hospitalist 35-minute. FROILAN Voice ID: [id number] Report ID: [id number] AMY
[2021-04-03 14:18] LABS: Body Fluid WBC 6372 /mm^3
[2021-04-03 14:24] LABS: Appearance SLT. TURBID (CLEAR); Body Fluid Source PLEURAL; Color of fluid Yellow (COLORLESS)
--- NOTE | 2021-04-03 21:00 | P.PN ---
Subjective Date of Service: 04/03/21 Chief Complaint: Dyspnea Subjective: Improving HE FEELS A LOT BETTER. I DISCUSSED WITH DR. MONAHAN. HE IS STABLE. LOT BETTER THAN ADMISSION. WE WERE TO DO THORACENTASIS BUT HE ATE. POSTPONED TILL AM. HE HAD THORACENTASIS TODAY. I AM NOT SURE HOW MUCH WAS REMVOED. TESTING HAS BEEN SENT. IT IS A TRANSUDATE SO LESS LIKELY TO BE CANCEROUS. Physical Examination - Vital Signs Temperature: 97.6 F Blood Pressure: 142/72 Pulse: 95 Respirations: 18 Pulse Ox (%): 97 - Physical Exam General: Mild distress HEENT: Atraumatic, PERRLA, EOMI Neck: Supple, JVD not distended Respiratory: Clear to auscultation bilaterally, Normal air movement Cardiovascular: Regular rate/rhythm, Normal S1 S2 Gastrointestinal: Normal bowel sounds, No tenderness Musculoskeletal: No tenderness Integumentary: No rashes Neurological: Normal speech, Normal tone, Normal affect Lymphatics: No axilla or inguinal lymphadenopathy - Studies Medications List Reviewed: Yes Assessment And Plan - Current Problems (Diagnosis) (1) Diastolic CHF, acute Current Visit: Yes Status: Acute Plan: THIS IS NEW HE IS GIVEN TID LASIX YESTERDAY BP IS LOWER TODAY. I REDUCED MEDS. DAILY LAB. SOME PRERENAL AZOTEMIA. NO JVD CLINICAL BETTER CREAT HIGHER NEEDS DIURETICS BUT NOT ABLE TO TOLERATE. R PLEURAL EFFUSION WILL NEED DIAGNOSTIC AND THERAPEUTIC TAP ON FRIDAY. PATIENT IS AWARE. DIURETICS HAVE NOT REDUCED THIS EFFUSION. DIURETICS DID HELP PULMONARY EDEMA. CREAT IS DOWN TO 1.86 NOW OFF DIURETICS. (2) Acute kidney injury superimposed on CKD Current Visit: Yes Status: Chronic Plan: FOR FU CKD. DAILY.LAB. ABOVE. RENAL CONSULT. CREAT HIGHER DESPITE LASIX DRIP. PROGNOSIS IS GUARDED. ARF ON CKD IF WORSE. I STOPPED LASIX LAST NIGHT BP WAS LOW. RENAL DOCTORS ARE AWARE. CREAT CAME DOWN AFTER STOPPING LASIX DRIP ABOVE. CLOSE TO HIS NORMAL CREAT NOW OFF LASIX. (3) Coronary artery disease due to type 2 diabetes mellitus Current Visit: Yes Status: Chronic Plan: HE HAS BEEN TO DR. VALLE BUT NOT LATELY. HE WILL SEE HIM HERE. (4) COPD (chronic obstructive pulmonary disease) Current Visit: Yes Status: Chronic Plan: FORMER SMOKER COPD IS ALWAYS POSSIBLE. IV STEROIDS, NEBS HELPED SOME. (5) Pleural effusion Current Visit: Yes Status: Acute (6) Pleural effusion Current Visit: Yes Status: Acute Plan: LARGE R SIDE TO TAP DIAGNOSTIC AND THERAPEUTIC. IN AM. STABLE. TAP DELAYED. KEEP NPO AFTER MIDNIGHT.
[2021-04-03] MEDS: MELATONIN 5 MG TABLET PO PRN (22:28)
[2021-04-04] MEDS: IPRATROPIUM BROM 0.5MG/2.5ML NEB SCH ×2 (02:00→08:00)
[2021-04-04] MEDS: ALBUTEROL 2.5 MG/3 ML NEB SOL NEB SCH ×2 (02:00→08:00)
[2021-04-04 06:11] LABS: Absolute Lymphocytes (CBC) 2.4 K/uL (0.7-4.9); Hematocrit 45.7 % (39.6-49.0); Lymphocytes % 25.4 % (15.3-44.8); MPV 9.1 fL (7.6-11.3); RBC Red Blood Cell Count 4.89 M/uL (4.33-5.43)
[2021-04-04 06:15] LABS: Potassium 4.7 mmol/L (3.5-5.1)
[2021-04-04 09:21] VITALS: O2SAT 92
[2021-04-04] MEDS: CLOPIDOGREL 75 MG TABLET PO SCH (09:24)
[2021-04-04] MEDS: GLIMEPIRIDE 2 MG TABLET PO SCH (09:24)
[2021-04-04] MEDS: JARDIANCE 25 MG PO SCH (09:24)
[2021-04-04] MEDS: ASPIRIN EC 325 MG TABLET PO SCH (09:24)
[2021-04-04] MEDS: INSULIN -REGULAR HUMAN 50 UNIT/0.5 ML ML SQ SCH ×2 (09:24→12:39)
[2021-04-04] MEDS: MAGNESIUM OXIDE 400 MG TAB PO SCH (09:24)
[2021-04-04 12:04] VITALS: BP 115/62; TEMP 97.3
--- NOTE | 2021-04-04 12:49 | PN ---
Date of Progress Note: 04/04/2021 Subjective: The patient was admitted with over volume, acute kidney injury. The patient was diurese d, responded very well. The patient had pleural effusion, status post thoracocentesis yesterday, man aged to remove 800. Physical Examination: Vital Signs: Blood pressure 119/69, pulse of 82, afebrile. Chest: Clear to auscultation. Heart: S1, S2. Regular. Abdomen: Soft, nontender. Extremity: No edema. Neurologic: Alert. No focality. Laboratory Data: WBC 9.3, H and H 14.7/45.7. Sodium 134, potassium 4.7, bicarb 25, BUN 39, creatini ne 1.4, calcium 8.9. Current Medications: The patient on include; 1.Plavix. 2.Zofran. 3.Melatonin. 4.Aspirin. 5.Insulin. 6.Breathing treatment. Assessment And Plan: 1.Acute kidney injury secondary to cardiorenal, currently normal volume. I am going to resume Lasix oral as 20 mg. The patient cleared from the Renal standpoint for discharge planning to follow up in the office in 2-3 weeks. 2.Hypertension, controlled, optimal. Continue current medication. 3.Hyponatremia secondary to dilutional, resolved. 4.Coronary artery disease with congestive heart failure as above. FROILAN Voice ID: [id number] Report ID: [id number]
[2021-04-05] MEDS ORDERED: FUROSEMIDE 20 MG TABLET PO SCH (09:00)
== END 2021-04-04 13:26 | disposition home or self-care (01) | DRG 291 ==
LOC: ER 11:53 → ERHOLD 14:09 → 2ND 14:59
PROVIDERS: ADMIT Internal Medicine; ATTEND Internal Medicine
PROC: 0W993ZZ Drainage of Right Pleural Cavity, Percutaneous Approach (ICD-10-PCS; principal; 2021-04-03)
DX: I13.0 Hypertensive heart and chronic kidney disease with heart failure and stage 1 through stage 4 chronic kidney disease, or unspecified chronic kidney disease (principal); N17.0 Acute kidney failure with tubular necrosis; J96.00 Acute respiratory failure, unspecified whether with hypoxia or hypercapnia; I50.33 Acute on chronic diastolic (congestive) heart failure; E87.3 Alkalosis; N25.81 Secondary hyperparathyroidism of renal origin; E87.1 Hypo-osmolality and hyponatremia; J90 Pleural effusion, not elsewhere classified; N18.9 Chronic kidney disease, unspecified; E11.22 Type 2 diabetes mellitus with diabetic chronic kidney disease; E11.40 Type 2 diabetes mellitus with diabetic neuropathy, unspecified; I35.0 Nonrheumatic aortic (valve) stenosis; E88.09 Other disorders of plasma-protein metabolism, not elsewhere classified; J44.9 Chronic obstructive pulmonary disease, unspecified; I25.10 Atherosclerotic heart disease of native coronary artery without angina pectoris; Z79.899 Other long term (current) drug therapy; Z87.891 Personal history of nicotine dependence; Z79.02 Long term (current) use of antithrombotics/antiplatelets; Z20.822 Contact with and (suspected) exposure to COVID-19; Z79.84 Long term (current) use of oral hypoglycemic drugs
CPT/HCPCS: 0240U; 32555; 36415; 71045; 71046; 71250; 76770; 80048; 80053; 80069; 80076; 82040; 82042; 82150; 82550; 82570; 82652; 82805; 82945; 82947; 83036; 83615; 83735; 83880; 83935; 83970; 84100; 84132; 84156; 84157; 84300; 84443; 84478; 84484; 85025; 85379; 85610; 86038; 87015; 87070; 87102; 87116; 87206; 88108; 88305; 89050; 93005; 93306; 93970; 94640; 96374; 99285; J1650; J1940; J2920

== ENCOUNTER 2021-05-07 13:48 | Observation (INO) | payer OTHER ==
[2021-05-07 15:23] LABS: SARS-COV-2 RT PCR NEGATIVE (NEGATIVE)
--- OUTSIDE RECORDS SUMMARY | 2021-05-07 16:12 | XMS REPORT | Continuity of Care Document ---
:1935 Author Organization [facility] Address [address] [place] [address] Care Team Providers Name Role Phone Bharathi COBURN Attending Clinician Unavailable Payers Payer Name Policy Type Policy Number Effective Date Expiration Date S gianni MEDICARE PART A [id number] 2000 \T\ B 00:00:00 [employer] INDEMNITY [id number] 00:00:00 Problems This patient has no known problems. Allergies, Adverse Reactions, Alerts Allergy Allergy Status Severity Reaction(s) Onset Inactive Treating Comm ents Source Name Type Date Date Clinician NO KNOWN Drug Active [facility]ERG[facility] Class [facility] Medications This patient has no known medications. Procedures This patient has no known procedures. Encounters Start End Encounter Admission Attending Care Care Encounter Source Date/Time Date/Time Type Type Clinicians Facility Department ID 2020-04-20 2020-04-20 Outpatient Angelita COBURN [facility] [id number] [facility] 10:30:00 10:30:00 DEJA [id number] [facility] 2020-04-20 2020-04-20 Outpatient Angelita COBURN [facility] [id number] [facility] 10:30:00 10:30:00 DEJA [facility] 2020 2020 Outpatient Angelita COBURN [facility] [id number] [facility] 10:30:00 10:30:00 DEJA [id number] [facility] 2020 2020 Outpatient Angelita COBURN [facility] [id number] [facility] 10:30:00 10:30:00 DEJA [facility] Results This patient has no known results.
[2021-05-07] MEDS ORDERED: INFLUENZA VACCINE (for 6+ mo) 0.5 ML DOSE IMVAC ONE (17:00)
[2021-05-07] MEDS ORDERED: PNEUMOCOCCAL VACCINE 0.5 ML IMVAC ONE (17:00)
[2021-05-07] MEDS ORDERED: POLYETHYL GLY 3350 17 GM/DOSE PO PRN (17:00)
[2021-05-07] MEDS ORDERED: NACHLORIDE 0.45% 1,000 ML IV SCH (17:00)
[2021-05-07] MEDS ORDERED: ONDANSETRON 4 MG/2 ML VIAL IV PRN (17:00)
[2021-05-07] MEDS ORDERED: LOPERAMIDE HCL 2 MG CAPSULE PO PRN (17:00)
[2021-05-07] MEDS ORDERED: ONDANSETRON 4 MG (ODT) TAB PO PRN (17:00)
[2021-05-07] MEDS ORDERED: ACETAMINOPHEN 325 MG TABLET PO PRN (17:00)
[2021-05-07] MEDS ORDERED: DIPHENHYDRAMINE 25 MG TAB/CAP PO PRN (17:00)
[2021-05-07] MEDS ORDERED: GLUCAGON 1 MG/VIAL IM PRN (17:03)
[2021-05-07] MEDS ORDERED: D50W 25 GM/50 ML SYRINGE IV PRN (17:03)
[2021-05-07 17:20] LABS: Absolute Lymphocytes (CBC) 2.3 K/uL (0.7-4.9); Hematocrit 44.9 % (39.6-49.0); Lymphocytes % 25.2 % (15.3-44.8); RBC Red Blood Cell Count 4.83 M/uL (4.33-5.43)
[2021-05-07 17:29] LABS: Protime INR 1.14
[2021-05-07] MEDS ORDERED: D10W 250 ML BAG IV PRN (17:33)
[2021-05-07] MEDS ORDERED: HYDROMORPHONE HCL 1 MG/ML INJ IV ONE (17:45)
[2021-05-07 18:04] LABS: Albumin 3.2 g/dL (3.4-5.0); Bilirubin Direct 0.1 mg/dL (0-0.2); Bilirubin Total 0.3 mg/dL (0.2-1.0); Magnesium 2.5 mg/dL (1.8-2.4); Phosphorus 4.1 mg/dL (2.5-4.9); Potassium 4.2 mmol/L (3.5-5.1); Protein, Total 7.9 g/dL (6.4-8.2); Thyroid Stimulating Hormone 3.01 uIU/mL (0.360-3.740)
--- NOTE | 2021-05-07 18:04 | RAD REPORT ---
EXAM DESCRIPTION: RAD - Chest Single View - 05/07/2021 5:22 pm CLINICAL HISTORY: dyspnea, plueral effusion Chest pain. COMPARISON: Chest Pa And Lat (2 Views) dated 05/04/2021; Chest Pa And Lat (2 Views) dated 03/30/2021; C hest Single View dated 03/27/2021; Chest Pa And Lat (2 Views) dated 03/26/2021 FINDINGS: Portable technique limits examination quality. Moderate right pleural effusion is seen. Small left pleural effusion noted. Mild pulmonary edema susp ected. The heart is moderately enlarged.
[2021-05-07 19:42] VITALS: BMI 29.9
[2021-05-07] MEDS: IPRATROPIUM BROM 0.5MG/2.5ML IH SCH (20:20)
[2021-05-07] MEDS: ALBUTEROL 2.5 MG/3 ML NEB SOL IH SCH (20:20)
[2021-05-07] MEDS: INSULIN -REGULAR HUMAN 50 UNIT/0.5 ML ML SQ SCH (21:00)
--- NOTE | 2021-05-07 21:03 | P.CNS ---
Date of Consult: 05/07/21 Reason for Consult: R pleural effusion Chief Complaint: SOB History of Present Illness: AGE86 c/o C SOBOE worse past 2 months. S/p thoracentesis R lymphocytic effusion. Denies fever , chest pain or weight loss. Allergies No Known Allergies Allergy (Unverified 04/02/11 19:25) Home Medications: Clopidogrel Bisulfate [Plavix*] 75 mg PO DAILY 03/27/21 Empagliflozin [Jardiance] 25 mg PO DAILY 03/27/21 Glimepiride 4 mg PO DAILY 03/27/21 Magnesium Oxide [Mag 0X*] 400 mg PO BID 03/27/21 Albuterol Neb [Proventil 0.083% Neb Soln] 2.5 mg NEB [id number] amp 04/04/21 Furosemide 20 mg PO EVERY 3RD DAY #30 tablet 04/04/21 Ipratropium Neb [Atrovent*] 0.5 mg NEB [id number] amp 04/04/21 Albuterol Neb [Proventil 0.083% Neb Soln] 2.5 mg IH [id number] amp 05/08/21 Diphenhydramine [Benadryl*] 25 mg PO BEDTIME PRN PRN tab 05/08/21 - Past Medical/Surgical History Diabetic: Yes -: Type 2 diabetes -: Hypertension -: CRF -: Diastolic CHF? - Social History Alcohol use: No CD- Drugs: No Place of Residence: Home Review of Systems 10-point ROS is otherwise unremarkable General: Weakness Respiratory: Shortness of Breath Physical Examination Temp Pulse Resp BP Pulse Ox 97.2 F 77 18 117/64 97 05/07/21 17:03 05/07/21 17:03 05/07/21 17:03 05/07/21 17:03 05/07/21 17:03 General: Alert, In no apparent distress, Oriented x3 HEENT: Atraumatic Neck: Supple Respiratory: Diminished (R base) Cardiovascular: No edema, Regular rate/rhythm Gastrointestinal: Normal bowel sounds Laboratory Data (last 24 hrs) 05/07/21 : Sodium Cancelled, Potassium Cancelled, BUN Cancelled, Creatinine Cancelled, Glucose Cancelled, Total Bilirubin Cancelled, AST Cancelled, ALT Cancelled, Alkaline Phosphatase Cancelled 05/07/21 : PT Cancelled, INR Cancelled 05/07/21 : WBC Cancelled, Hgb Cancelled, Hct Cancelled, Plt Count Cancelled 05/07/21 17:00: Sodium 139, Potassium 4.2, BUN 36 H, Creatinine 2.04 H, Glucose 99, Phosphorus 4.1, Magnesium 2.5 H, Total Bilirubin 0.3, AST 22, ALT 29, Alkaline Phosphatase 98 05/07/21 17:00: PT 13.1 H, INR 1.14, APTT 30.0 05/07/21 17:00: WBC 9.20, Hgb 14.7, Hct 44.9, Plt Count 265 - Problems (1) Pleural effusion Status: Acute Plan: Pt is 86 yrs of age AW R effusion lymphocytic predom, Exudative by protein criteria only, Flow cyto neg, No hx of cance rNon smoker, Rec: refer to Thoracic surgery for pleuroscopy and pleurodesis, normal LV, LP VQ scan. C RF, Normal CBC, DW Dr. Norton and PT
[2021-05-07 21:33] LABS: Hematocrit 41.6 % (39.6-49.0); Lymphocytes % 34.3 % (15.3-44.8); MPV 8.7 fL (7.6-11.3); RBC Red Blood Cell Count 4.55 M/uL (4.33-5.43)
[2021-05-07 22:32] LABS: Urine Appearance CLEAR (Clear); Urine Bilirubin NEGATIVE (Negative); Urine Blood NEGATIVE (Negative); Urine Color YELLOW (Yellow); Urine Glucose 3+ (Negative); Urine Protein NEGATIVE (Negative); Urine Specific Gravity 1.015 (1.005-1.030); Urine Urobilinogen 0.2 mg/dL (0.2-1.0); Urine pH 7.5 (5.0-7.0)
[2021-05-07 22:36] LABS: Urine Microscopic Reflex NO UMIC
[2021-05-07 23:03] LABS: UR MICROALBUMIN 2.1 mg/dL (< 1.9)
[2021-05-08] MEDS: IPRATROPIUM BROM 0.5MG/2.5ML IH SCH (01:44)
[2021-05-08] MEDS: ALBUTEROL 2.5 MG/3 ML NEB SOL IH SCH (01:44)
[2021-05-08 05:26] LABS: Absolute Lymphocytes (CBC) 2.5 K/uL (0.7-4.9); Hematocrit 41.8 % (39.6-49.0); Lymphocytes % 33.4 % (15.3-44.8); MPV 8.9 fL (7.6-11.3); RBC Red Blood Cell Count 4.58 M/uL (4.33-5.43)
[2021-05-08 05:44] LABS: Magnesium 2.3 mg/dL (1.8-2.4); Potassium 4.6 mmol/L (3.5-5.1)
[2021-05-08] MEDS ORDERED: HYDROMORPHONE HCL 1 MG/ML INJ ONE (06:17)
[2021-05-08] MEDS: INSULIN -REGULAR HUMAN 50 UNIT/0.5 ML ML SQ SCH (07:30)
--- NOTE | 2021-05-08 08:31 | RAD REPORT ---
EXAM DESCRIPTION: RAD - Chest Single View - 05/08/2021 6:30 am CLINICAL HISTORY: Status Post Thorocentesis Chest pain. COMPARISON: Chest Single View dated 05/07/2021; Chest Pa And Lat (2 Views) dated 05/04/2021; Chest Pa An d Lat (2 Views) dated 03/30/2021; Chest Single View dated 03/27/2021 FINDINGS: Portable technique limits examination quality. Right pleural effusion is again noted. No pneumothorax seen. Left lung is grossly clear. The heart is moderately enlarged in size. No displaced fractures.
--- NOTE | 2021-05-08 08:32 | RAD REPORT ---
EXAM DESCRIPTION: NM - Vent Perfusion VQ Scan - 05/08/2021 7:01 am CLINICAL HISTORY: dyspnea, pleural effusion Shortness of breath COMPARISON: Thoracentesis w/ US Guide dated 04/03/2021 TECHNIQUE: 19.9mCi Xe-133 gas inhaled and 7.6mCi Tc-MAA IV. Planar ventilation scan was performed in posterior projection after Xe-133 gas inhalation (wash-in, e quilibrium, and wash-out phases) followed by perfusion scan with Tc-MAA IV in multiple projections. Examination is correlated with recent chest radiograph. FINDINGS: Diminished ventilation and perfusion is seen to the right lower lung. No mismatch defect is seen to indicate pulmonary embolism. IMPRESSION: Low probability of pulmonary thromboembolism.
[2021-05-08 08:34] VITALS: BP 107/64; TEMP 97.6
[2021-05-08 09:20] VITALS: O2SAT 97
--- NOTE | 2021-05-08 13:51 | ECHO ---
HEIGHT: 5 ft 9 in WEIGHT: 202 lb 6.4 oz DATE OF STUDY: 05/08/[address]: Cuco Norton MD 2-DIMENSIONAL: YES M.MODE: YES DOPPLER: YES COLOR FLOW: YES TDS: NO PORTABLE: NO DEFINITY: NO BUBBLE STUDY: NO DIAGNOSIS: SYSTOLIC MURMUR CARDIAC HISTORY: CATHERIZATION: YES SURGERY: NO PROSTHETIC VALVE: NO PACEMAKER: NO MEASUREMENTS (cm) DIASTOLIC (NORMALS) SYSTOLIC (NORMALS) IVSd 1.2 (0.6-1.2) LA Diam 3.9 (1.9-4.0) LVEF 52% LVIDd 4.3 (3.5-5.7) LVIDs 3.1 (2.0-3.5) %FS 26% LVPWd 1.4 (0.6-1.2) Ao Diam 2.9 (2.0-3.7) 2 DIMENSIONAL ASSESSMENT: RIGHT ATRIUM: NORMAL LEFT ATRIUM: NORMAL RIGHT VENTRICLE: NORMAL LEFT VENTRICLE: LEFT VENTRICULAR HYPERTROPHY TRICUSPID VALVE: NORMAL MITRAL VALVE: MITRAL ANNULAR CALCIFICATION PULMONIC VALVE: NORMAL AORTIC VALVE: STENOTIC PERICARDIAL EFFUSION: NONE AORTIC ROOT: NORMAL LEFT VENTRICULAR WALL MOTION: NORMAL. DOPPLER/COLOR FLOW: MILD TRICUSPID AND AORTIC REGURGITATION. MODERATE AORTIC STENOSIS 1.2 CENTIMETERS SQUARED. COMMENTS: MILD TRICUSPID AND AORTIC REGURGITATION. AORTIC SCLEROSIS WITH MODERATE STENOSIS. MITRAL ANNULAR CALCIFICATION. NORMAL EJECTION FRACTION. LEFT VENTRICULAR HYPERTROPHY. TECHNOLOGIST: JO-ANN BUNCH
--- NOTE | 2021-05-08 21:33 | P.DS ---
Admission Date: 05/07/21 Discharge Date: 05/08/21 Disposition: ROUTINE DISCHARGE Discharge Condition: GOOD Reason for Admission: SOB Hospital Course: MR SALGADO HAVE WORSENING DYSPNEA. INITIAL PLAN WAS TO REDO THORACENTASIS BUT THAT WILL NOT GIVE NURSING HOME ANSWER. HIS CYTOLOGY OF FLUID SHOWED LYMPHOCYOSIS BUT NO CANCER. WE STILL SUSPECT HE MAY HAVE MALIGNANCY. HE WILL NEED PLEURAL BIOPSY AND HAS TO BE DONE IN [place]. I CALLED DR. MODI TO GET HIM TO SEE HIM IN [facility]. HE WILL WAIT A FEW DAYS AND HAVE BIOPSY DONE THERE. FAMILY AGREES WITH THE PLAN. Vital Signs/Physical Exam: Temp Pulse Resp BP Pulse Ox 97.6 F 70 18 107/64 96 05/08/21 08:00 05/08/21 08:00 05/08/21 08:00 05/08/21 08:00 05/08/21 08:00 Laboratory Data at Discharge: WBC 7.40 K/uL (4.3-10.9) D 05/08/21 05:05 Hgb 13.8 g/dL (13.6-17.9) 05/08/21 05:05 Hct 41.8 % (39.6-49.0) 05/08/21 05:05 Plt Count 222 K/uL (152-406) 05/08/21 05:05 PT Cancelled 05/07/21 Unknown INR Cancelled 05/07/21 Unknown APTT 30.0 SECONDS (24.3-36.9) 05/07/21 17:00 Sodium 136 mmol/L (136-145) 05/08/21 05:05 Potassium 4.6 mmol/L (3.5-5.1) 05/08/21 05:05 BUN 36 mg/dL (7-18) H 05/08/21 05:05 Creatinine 1.90 mg/dL (0.55-1.3) H 05/08/21 05:05 Glucose 109 mg/dL (74-106) H 05/08/21 05:05 Phosphorus 4.1 mg/dL (2.5-4.9) 05/07/21 17:00 Magnesium 2.3 mg/dL (1.8-2.4) 05/08/21 05:05 Total Bilirubin Cancelled 05/07/21 Unknown AST Cancelled 05/07/21 Unknown ALT Cancelled 05/07/21 Unknown Alkaline Phosphatase Cancelled 05/07/21 Unknown Cholesterol 229 mg/dL (<200) H 05/07/21 21:19 Home Medications: Clopidogrel Bisulfate [Plavix*] 75 mg PO DAILY 03/27/21 Empagliflozin [Jardiance] 25 mg PO DAILY 03/27/21 Glimepiride 4 mg PO DAILY 03/27/21 Magnesium Oxide [Mag 0X*] 400 mg PO BID 03/27/21 Albuterol Neb [Proventil 0.083% Neb Soln] 2.5 mg NEB [id number] amp 04/04/21 Furosemide 20 mg PO EVERY 3RD DAY #30 tablet 04/04/21 Ipratropium Neb [Atrovent*] 0.5 mg NEB [id number] amp 04/04/21 Albuterol Neb [Proventil 0.083% Neb Soln] 2.5 mg IH [id number] amp 05/08/21 Diphenhydramine [Benadryl*] 25 mg PO BEDTIME PRN PRN tab 05/08/21 Followup: Cuco Norton MD [Family Provider] - (Call to schedule appointment)
== END 2021-05-08 10:40 | disposition home or self-care (01) ==
LOC: 2ND 15:52 → INTOOBSV 15:52
PROVIDERS: ADMIT Internal Medicine; ATTEND Internal Medicine
DX: J90 Pleural effusion, not elsewhere classified (principal); D72.820 Lymphocytosis (symptomatic); E11.22 Type 2 diabetes mellitus with diabetic chronic kidney disease; I13.0 Hypertensive heart and chronic kidney disease with heart failure and stage 1 through stage 4 chronic kidney disease, or unspecified chronic kidney disease; N18.2 Chronic kidney disease, stage 2 (mild); I50.30 Unspecified diastolic (congestive) heart failure; I25.10 Atherosclerotic heart disease of native coronary artery without angina pectoris; J44.9 Chronic obstructive pulmonary disease, unspecified; Z20.822 Contact with and (suspected) exposure to COVID-19; F17.290 Nicotine dependence, other tobacco product, uncomplicated; Z79.84 Long term (current) use of oral hypoglycemic drugs; Z79.02 Long term (current) use of antithrombotics/antiplatelets
CPT/HCPCS: 93306; 85025 ×3; 80048 ×2; 36415; 82465; 83735 ×2; 84100; 85610; 82947 ×3; 80076; 85730; 84443; 81003; 83036; 82570; 82607; 82306; 0240U; 82043; 71045 ×2; 94640; 78582; J1170; A9558; A9540; G0379; G0378 ×2